=== PATIENT | male | born 1970 | race Caucasian/White ===

== ENCOUNTER 2023-08-28 14:39 | Outpatient (OUT) | payer OTHER, SELFPAY ==
--- NOTE | 2023-08-28 | XR_ITS ---
The [address] [address] Patient Name: ALINA FULTON MRN: [id number] date: 1970 Sex: M Assigned Patient Location: Current Patient Location: Accession/Order Number: [id number] Exam Date: 08/28/2023 15:05 Report Date: 08/29/2023 07:39 At the request of: STACEY MORALES Procedure: XR foot RT min 3V PROCEDURE: XR foot RT min 3V, XR ankle RT min 3V HISTORY: RIGHT FOOT PAIN , heel pain COMPARISON: None. FINDINGS: BONES:Separate ossification adjacent tip of medial malleolus; sequela of remote injury versus ununited secondary ossification center. Fracture, dislocation, bone lesion. Prominent calcaneal plantar spur. SOFT TISSUES:No visible soft tissue swelling. EFFUSION:None visible. OTHER: Negative. XR/XR foot RT min 3V IMPRESSION: 1. No acute or specific findings to account for patient's symptoms. 2. Prominent calcaneal plantar spur of uncertain clinical significance. Electronically authenticated by: OPAL LOZANO Date: 08/29/2023 07:39
--- NOTE | 2023-08-28 | XR_ITS ---
The [address] [address] Patient Name: ALINA FULTON MRN: [id number] date: 1970 Sex: M Assigned Patient Location: Current Patient Location: Accession/Order Number: [id number] Exam Date: 08/28/2023 15:05 Report Date: 08/29/2023 07:39 At the request of: STACEY MORALES Procedure: XR ankle RT min 3V PROCEDURE: XR foot RT min 3V, XR ankle RT min 3V HISTORY: RIGHT FOOT PAIN , heel pain COMPARISON: None. FINDINGS: BONES:Separate ossification adjacent tip of medial malleolus; sequela of remote injury versus ununited secondary ossification center. Fracture, dislocation, bone lesion. Prominent calcaneal plantar spur. SOFT TISSUES:No visible soft tissue swelling. EFFUSION:None visible. OTHER: Negative. XR/XR ankle RT min 3V IMPRESSION: 1. No acute or specific findings to account for patient's symptoms. 2. Prominent calcaneal plantar spur of uncertain clinical significance. Electronically authenticated by: OPAL LOZANO Date: 08/29/2023 07:39
== END 2023-08-28 14:40 | disposition home or self-care (01) ==
PROVIDERS: Visit Provider Physician Assistant
DX: M79.671 Pain in right foot (principal); M25.571 Pain in right ankle and joints of right foot; M77.31 Calcaneal spur, right foot
CPT/HCPCS: 73610; 73630